=== PATIENT | male | born 2000 | race African-American/Black ===

== ENCOUNTER 2020-09-29 13:49 | Emergency (ER) | payer SELFPAY ==
[~2020-09-29] VITALS: Ht 177.8 cm; Wt 95.0 kg
[2020-09-29 15:49] LABS: CLARITY URINE CLEAR (CLEAR); COLOR URINE ORANGE (YELLOW); KETONES URINE NEGATIVE (NEGATIVE); LEUKOCYTE ESTERASE URINE 2+ (NEGATIVE); NITRITE URINE POSITIVE (NEGATIVE); OCCULT BLOOD URINE NEGATIVE (NEGATIVE); PROTEIN URINE NEGATIVE (NEGATIVE)
[2020-09-29] MEDS ORDERED: CEPH500T MT (16:03)
[2020-09-29 16:07] VITALS: BP 133/76
== END 2020-09-29 16:09 | disposition home or self-care (01) ==
LOC: ER 13:49
DX: R30.0 Dysuria (principal)
CPT/HCPCS: 81003; 99283